=== PATIENT | male | born 1990 | race Caucasian/White ===

== ENCOUNTER 2022-03-18 07:32 | Day surgery (SDC) | payer OTHER ==
[2022-03-18 07:49] VITALS: TEMP 97.1
[2022-03-18] MEDS ORDERED: LACTATED RINGERS 1,000 ML IV ONE (07:50)
[2022-03-18] MEDS ORDERED: PROPOFOL 10 MG/ML 20 ML VIAL IV ONE (08:08)
--- NOTE | 2022-03-18 08:08 | P.GSHP ---
History of Present Illness H&P Date: 03/18/22 Chief Complaint: GI bleed Is a 32-year-old male with history of GI bleed. Patient presents today for colonoscopy. Past Medical History Additional Past Medical History / Comment(s): hemorrhoids and anal fissure. pre op colonoscopy before hemorrhoidectomy. small amt of rectal bleeding has increased lately presumed from hemorrhoids and fissure but precautionary. frequent urination tested for DM and prostate nothing showed. falls asleep easily will have sleep testing. 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 +covid 07/2021 History of Any Multi-Drug Resistant Organisms: None Reported Additional Past Surgical History / Comment(s): rt carpal tunnel release, wisdom teeth removed. Past Anesthesia/Blood Transfusion Reactions: No Reported Reaction Additional Past Anesthesia/Blood Transfusion Reaction / Comment(s): no blood transfusions. Smoking Status: Former smoker, Vaper - Past Family History Mother Family Medical History: Hypertension Father Additional Family Medical History / Comment(s): psoriasis , arthritis Medications and Allergies Home Medications Medication Instructions Recorded Confirmed Type No Known Home Medications 03/14/22 03/18/22 History Allergies Allergy/AdvReac Type Severity Reaction Status Date / Time No Known Allergies Allergy Verified 03/18/22 07:43 Surgical - Exam Vital Signs Temp Pulse Resp BP Pulse Ox 97.1 F L 78 15 127/84 97 03/18/22 07:47 03/18/22 07:47 03/18/22 07:47 03/18/22 07:47 03/18/22 07:47 - General well developed, well nourished, no distress - Eyes PERRL - ENT normal pinna - Neck no masses - Respiratory normal expansion - Cardiovascular Rhythm: regular - Abdomen Abdomen: soft, non tender Assessment and Plan Assessment: GI bleed. We'll perform colonoscopy.
[2022-03-18] MEDS ORDERED: LACTATED RINGERS 1,000 ML IV SCH (08:20)
[2022-03-18] MEDS ORDERED: LIDOCAINE 1% (10MG/ML) FOR IV START INTRADERMA PRN (08:20)
--- NOTE | 2022-03-18 08:22 | P.OP ---
Date of Procedure: 03/18/22 Preoperative Diagnosis: GI bleed Postoperative Diagnosis: Internal and external hemorrhoids Procedure(s) Performed: Colonoscopy Anesthesia: MAC Surgeon: Galileo Benedict Pathology: none sent Condition: stable Disposition: PACU Description of Procedure: The patient's placed on the endoscopy table in the lateral position. He received IV sedation. Digital rectal exam performed which revealed internal and external hemorrhoids. The flexible colonoscope was then placed patient anus and passed throughout the entire colon. The ileocecal valve was visualized. The cecum, ascending and transverse colon appeared normal. The descending and sigmoid colon appeared normal. The scope was then brought back the rectum and this appeared normal. Scope withdrawn for patient. There was no evidence of any active GI bleed. Presumed patient may have had bleeding from internal and external hemorrhoids.
[2022-03-18 08:40] VITALS: BP 114/78; PULSE 74; RESP 16
== END 2022-03-18 09:07 | disposition home or self-care (01) ==
LOC: ORWHC2ENDO 07:32
PROVIDERS: ATTEND Surgery
DX: K92.2 Gastrointestinal hemorrhage, unspecified (principal); K64.8 Other hemorrhoids; K64.4 Residual hemorrhoidal skin tags; Z87.19 Personal history of other diseases of the digestive system; Z86.16 Personal history of COVID-19; Z87.891 Personal history of nicotine dependence; Z82.49 Family history of ischemic heart disease and other diseases of the circulatory system; Z82.61 Family history of arthritis
CPT/HCPCS: 45378; J2704

== ENCOUNTER 2022-03-19 07:39 | Day surgery (SDC) | payer OTHER ==
[~2022-03-19 07:39] MED LIST: ACETAMINOPHEN TAB 500 MG TAB PO PRN; DEXAMETHASONE SOD PHOSPHATE 4 MG/ML 1 ML VIAL IV ONE; HEPARIN SODIUM,PORCINE/PF 5,000 UNIT/0.5 ML SYRINGE SQ PRN; HYDROmorphone 0.5 MG/0.5 ML SYRINGE IVP PRN; LACTATED RINGERS 1,000 ML IV SCH; ONDANSETRON 4 MG/2 ML VIAL IVP ONE; Pre Op ABX Message 1 EACH MISC MISCELLANE ONE
--- NOTE | 2022-03-19 08:42 | P.GSHP ---
History of Present Illness H&P Date: 03/19/22 Chief Complaint: Internal and external hemorrhoids Is a 32-year-old male who's had issues with internal and external hemorrhoids. Patient presents today for hemorrhoidectomy Past Medical History Additional Past Medical History / Comment(s): small amt of rectal bleeding has increased latetly. hx of blood in stools,hemorrhoids, colonoscopy before hemorrhoidectomy colonoscopy showed no fissure today. frequent urination tested for DM and prostate nothing showed. falls asleep easily will have sleep testing. 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 +covid 07/2021. [ End ] History of Any Multi-Drug Resistant Organisms: None Reported Additional Past Surgical History / Comment(s): colonoscopy. carpal tunnel released rt hand . wisdom teeth Past Anesthesia/Blood Transfusion Reactions: No Reported Reaction Additional Past Anesthesia/Blood Transfusion Reaction / Comment(s): no blood tranfusions Smoking Status: Former smoker, Vaper - Past Family History Father Family Medical History: Rheumatoid Arthritis (RA) Additional Family Medical History / Comment(s): psoriatic arthritis Mother Family Medical History: Hypertension Additional Family Medical History / Comment(s): neuropathy Medications and Allergies Home Medications Medication Instructions Recorded Confirmed Type No Known Home Medications 03/14/22 03/19/22 History Allergies Allergy/AdvReac Type Severity Reaction Status Date / Time No Known Allergies Allergy Verified 03/19/22 07:59 Surgical - Exam Vital Signs Temp Pulse Resp BP Pulse Ox 97.4 F L 74 16 130/71 98 03/19/22 08:00 03/19/22 08:00 03/19/22 08:00 03/19/22 08:00 03/19/22 08:00 - General well developed, well nourished, no distress - Eyes PERRL - ENT normal pinna - Neck no masses - Respiratory normal expansion - Cardiovascular Rhythm: regular - Abdomen Abdomen: soft, non tender - Rectum Internal and external Hemorrhoids. We'll perform hemorrhoidectomy
[2022-03-19] MEDS ORDERED: PROPOFOL 10 MG/ML 20 ML VIAL IV ONE (08:50)
[2022-03-19] MEDS ORDERED: MIDAZOLAM 2 MG/2 ML VIAL ONE (08:50)
[2022-03-19] MEDS ORDERED: ONDANSETRON 4 MG/2 ML VIAL ONE (08:50)
[2022-03-19] MEDS ORDERED: SODIUM CHLORIDE 0.9% 50 ML with ceFAZolin 2,000 MG IV ONE ×2 (08:53)
[2022-03-19] MEDS ORDERED: LIDOCAINE 1%-EPI 1:100,000 20 ML VIAL SQ ONE (09:17)
[2022-03-19 09:31] VITALS: TEMP 97.2
--- NOTE | 2022-03-19 10:02 | P.OP ---
Date of Procedure: 03/19/22 Preoperative Diagnosis: Internal and external hemorrhoids Postoperative Diagnosis: Internal and external hemorrhoids Procedure(s) Performed: Internal and external hemorrhoidectomy Anesthesia: FREEDOM Surgeon: Galileo Benedict Pathology: other (Internal and external hemorrhoids) Condition: stable Disposition: PACU Description of Procedure: The patient's placed on the operating table in the prone position after receiving spinal anesthetic and IV sedation. He was then jackknifed and then his anus was prepped and draped usual fashion. The anus was anesthetized 1% local Xylocaine. The anal retractors placed anus. And then the left lateral hemorrhoidal column was grasped. Allis clamps you have using the Harmonic scissors the hemorrhoid was performed. Next the right anterior and right posterior hemorrhoidal column was grasped and dissected in identical fashion. The anus was inspected for heme stasis. There is no bleeding seen. Gelfoam was placed and anus. Patient top she will was sent to recovery room stable condition.
[2022-03-19 10:55] VITALS: BP 130/78; PULSE 72; RESP 20
[2022-03-19] MEDS ORDERED: LACTATED RINGERS 1,000 ML IV ONE (11:17)
== END 2022-03-19 11:35 | disposition home or self-care (01) ==
LOC: OR 07:39
PROVIDERS: ATTEND Surgery
DX: K64.4 Residual hemorrhoidal skin tags (principal); K64.8 Other hemorrhoids; Z87.19 Personal history of other diseases of the digestive system; Z87.891 Personal history of nicotine dependence; Z82.61 Family history of arthritis; Z82.49 Family history of ischemic heart disease and other diseases of the circulatory system
CPT/HCPCS: 88304; 46260; J2250; J1100; J2405; J0690; J2704; J1644

== ENCOUNTER 2024-11-24 17:08 | Emergency (ER) | payer BC, OTHER ==
[2024-11-24 17:36] VITALS: RESP 16; TEMP 98
[2024-11-24 17:56] LABS: Basophils # (A) 0.04 10*3/uL (0.00-0.10); Basophils % (A) 0.4 %; Eosinophils # (A) 0.16 10*3/uL (0.04-0.35); Eosinophils % (A) 1.4 %; HCT 45.3 % (39.6-50.0); HGB 15.5 g/dL (13.0-17.0); Lymphocytes # (A) 2.94 10*3/uL (0.90-5.00); Lymphocytes % (A) 26.4 %; MCH 30.7 pg (27.0-32.0); MCHC 34.2 g/dL (32.0-37.0); MCV 89.7 fL (80.0-97.0); Monocytes # (A) 0.99 10*3/uL (0.20-1.00); Monocytes % (A) 8.9 %; Neutrophils # (A) 6.97 10*3/uL (1.80-7.70); Neutrophils % (A) 62.5 %; Platelet Count 327 10*3/uL (140-440); RBC 5.05 10*6/uL (4.40-5.60); RDW 13.0 % (11.5-14.5); WBC 11.14 10*3/uL (4.50-10.00)
[2024-11-24 18:07] LABS: INR 0.9 (<1.2); Partial Thromboplastin Time 24.3 sec (22.0-30.0); Prothrombin Time 10.4 sec (10.0-12.5)
[2024-11-24 18:12] LABS: ALT 51 U/L (4-49); AST 36 U/L (17-59); African American GFR (CKD) >90 (>60 ml/min/1.73 sqM); Albumin 5.0 g/dL (3.5-5.0); Alkaline Phosphatase 91 U/L (38-126); Anion Gap 14 mmol/L; Blood Urea Nitrogen 16 mg/dL (9-20); Calcium 10.2 mg/dL (8.4-10.2); Carbon Dioxide 23 mmol/L (22-30); Chloride 103 mmol/L (98-107); Glucose 89 mg/dL (74-99); Magnesium 2.0 mg/dL (1.6-2.3); Non-African American GFR(CKD) >90 (>60 ml/min/1.73 sqM); Potassium 4.5 mmol/L (3.5-5.1); Sodium 140 mmol/L (137-145); Total Protein 9.0 g/dL (6.3-8.2)
--- NOTE | 2024-11-24 18:23 | XR ---
EXAMINATION TYPE: XR chest 2V DATE OF EXAM: 11/24/2024 6:04 PM COMPARISON: None CLINICAL INDICATION: Male, 34 years old with history of Chest Pain; TECHNIQUE: XR chest 2V Frontal and lateral views of the chest. FINDINGS: Lungs/Pleura: There is no evidence of pleural effusion, focal consolidation, or pneumothorax. Pulmonary vascularity: Unremarkable. Heart/mediastinum: Cardiomediastinal silhouette is unremarkable. Musculoskeletal: No acute osseous pathology. IMPRESSION: No acute cardiopulmonary disease/process. [facility], , 11/24/2024 6:20 PM
--- NOTE | 2024-11-24 18:48 | ED ---
General Adult HPI - General Chief complaint: Chest Pain Stated complaint: chest tightness, anxiety Time Seen by Provider: 11/24/24 17:20 Source: patient, RN notes reviewed Mode of arrival: ambulatory Limitations: no limitations - History of Present Illness Initial comments: 34-year-old male with no reported medical conditions presenting to the emergency room with complaints of epigastric/lower chest discomfort that has been intermittent over the past day and a half. Patient states that on his way home from work yesterday he began to experience a tightness in his chest that radiated to his left arm with associated diaphoresis. He states that this lasted for approximately 5 minutes. Patient states that throughout the day today while he was at his job he felt a "weird "sensation in his chest. He denies associated difficulty breathing, heart palpitations. Patient believes that this may be secondary to anxiety that he had his boss, and to work today. Currently states that he is feeling well and is chest pain-free. Denies history of diabetes, hypertension, hyperlipidemia. Family history of hypertension and hyperlipidemia. - Related Data Previous Rx's Medication Instructions Recorded Acetaminophen Tab [Tylenol] 650 mg PO Q6H #30 tab 03/19/22 Docusate [Colace] 100 mg PO BID #20 capsule 03/19/22 Ibuprofen [Motrin] 600 mg PO Q6HR PRN #40 tab 03/19/22 oxyCODONE HCL [OxyIR] 5 mg PO Q6H PRN 3 Days #10 tab 03/19/22 Allergies Allergy/AdvReac Type Severity Reaction Status Date / Time No Known Allergies Allergy Verified 03/19/22 17:11 Review of Systems ROS Statement: Those systems with pertinent positive or pertinent negative responses have been documented in the HPI. ROS Other: All systems not noted in ROS Statement are negative. Past Medical History Past Medical History: No Reported History History of Any Multi-Drug Resistant Organisms: None Reported Past Surgical History: Tonsillectomy Additional Past Surgical History / Comment(s): carpal tunnel release. hemorrhoidectomy Past Psychological History: Unable to Obtain Smoking Status: Never smoker Past Alcohol Use History: None Reported Past Drug Use History: Marijuana General Exam Limitations: no limitations Neck exam: Present: normal inspection. Absent: tenderness, meningismus, lymphadenopathy Respiratory exam: Present: normal lung sounds bilaterally. Absent: respiratory distress, wheezes, rales, rhonchi, stridor Cardiovascular Exam: Present: regular rate, normal rhythm, normal heart sounds. Absent: systolic murmur, diastolic murmur, rubs, gallop, clicks GI/Abdominal exam: Present: soft, normal bowel sounds. Absent: distended, tenderness, guarding, rebound, rigid Extremities exam: Present: normal inspection, full ROM, normal capillary refill. Absent: tenderness, pedal edema, joint swelling, calf tenderness Back exam: Present: normal inspection Course Vital Signs 11/24/24 11/24/24 11/24/24 17:33 18:52 19:31 Temperature 98 F Pulse Rate 80 74 76 Respiratory 16 16 16 Rate Blood Pressure 134/82 120/75 120/77 O2 Sat by Pulse 98 97 98 Oximetry Medical Decision Making - Medical Decision Making Was pt. sent in by a medical professional or institution (, PA, TIME BUYER, urgent care, hospital, or detention...) When possible be specific @ -No Did you speak to anyone other than the patient for history (EMS, parent, family, police, friend...)? What history was obtained from this source @ -No Did you review nursing and triage notes (agree or disagree)? Why? @ -I reviewed and agree with nursing and triage notes Were old charts reviewed (outside hosp., previous admission, EMS record, old EKG, old radiological studies, urgent care reports/EKG's, detention records)? Report findings @ -No old charts were reviewed Differential Diagnosis (chest pain, altered mental status, abdominal pain women, abdominal pain men, vaginal bleeding, weakness, fever, dyspnea, syncope, headache, dizziness, GI bleed, back pain, seizure, CVA, palpatations, mental health, musculoskeletal)? @ -Differential Chest Pain: Stable Angina, Unstable Angina, STEMI, NSTEMI Aortic Dissection, Pneumothorax, Musculoskeletal, Esophageal Spasm GERD, Cholecystitis, Pancreatitis, Zoster, this is not meant to be an all-inclusive list. EKG interpreted by me (3pts min.). @ -Completed at 1743 sinus rhythm with sinus arrhythmia, ventricular of 83, IL interval 146, QRS 90, QT 351, QTc 391 X-rays interpreted by me (1pt min.). @ -Chest x-ray complete no acute cardiopulmonary process or disease CT interpreted by me (1pt min.). @ -None done U/S interpreted by me (1pt. min.). @ -None done What testing was considered but not performed or refused? (CT, X-rays, U/S, labs)? Why? @ -None What meds were considered but not given or refused? Why? @ -None Did you discuss the management of the patient with other professionals (professionals i.e. , PA, TIME BUYER, lab, RT, psych nurse, marriage and family social worker, rubber extrusion machine operator, teacher, state wildlife officer, case briefer)? Give summary @ -No Was smoking cessation discussed for >3mins.? @ -No Was critical care preformed (if so, how long)? @ -No Were there social determinants of health that impacted care today? How? (Homelessness, low income, unemployed, alcoholism, drug addiction, transportation, low edu. Level, literacy, decrease access to med. care, skilled nursing, rehab)? @ -No Was there de-escalation of care discussed even if they declined (Discuss DNR or withdrawal of care, Hospice)? DNR status @ -No What co-morbidities impacted this encounter? (DM, HTN, Smoking, COPD, CAD, Cancer, CVA, ARF, Chemo, Hep., AIDS, mental health diagnosis, sleep apnea, morbid obesity)? @ -None Was patient admitted / discharged? Hospital course, mention meds given and route, prescriptions, significant lab abnormalities, going to OR and other pertinent info. @ -Discharge. 34-year-old male presented emergency room with complaints of chest pain. On questioning patient's pain is more epigastric in region and does have tenderness to the epigastric region. Patient was offered medication for pain however declined stating that he feels well and is not having any discomfor t in his chest at this time. EKG is in sinus rhythm. Laboratory testing including CBC, CMP, coagulation, D-dimer, and troponin within normal. Chest x- ray no acute process. Patient is stable for discharge. Recommend close follow- up with primary care provider for further evaluation. return parameters discussed. Case discussed with my attending Dr. Almendarez. Undiagnosed new problem with uncertain prognosis? @ -No Drug Therapy requiring intensive monitoring for toxicity (Heparin, Nitro, Insulin, Cardizem)? @ -No Were any procedures done? @ -No Diagnosis/symptom? @ -Epigastric abdominal pain, chest pain Acute, or Chronic, or Acute on Chronic? @ -Acute Uncomplicated (without systemic symptoms) or Complicated (systemic symptoms)? @ -Uncomplicated Side effects of treatment? @ -No Exacerbation, Progression, or Severe Exacerbation? @ -No Poses a threat to life or bodily function? How? (Chest pain, [place], [place], pneumonia, PE, COPD, DKA, ARF, appy, cholecystitis, CVA, Diverticulitis, Homicidal, Nicholson icidal, threat to staff... and all critical care pts) @ -No - Lab Data Result diagrams: 11/24/24 17:43 11/24/24 17:43 Lab Results 11/24/24 11/24/24 11/24/24 Range/Units 17:43 17:43 17:43 WBC 11.14 H (4.50-10.00) 10*3/uL RBC 5.05 (4.40-5.60) 10*6/uL Hgb 15.5 (13.0-17.0) g/dL Hct 45.3 (39.6-50.0) % MCV 89.7 (80.0-97.0) fL MCH 30.7 (27.0-32.0) pg MCHC 34.2 (32.0-37.0) g/dL Plt Count 327 (140-440) 10*3/uL MPV 10.1 (9.5-12.2) fL Immature Gran % (Auto) 0.4 % Neutrophils % 62.5 % Lymphocytes % 26.4 % Monocytes % 8.9 % Eosinophils % 1.4 % Basophils % 0.4 % Immature Gran # 0.04 (0.00-0.04) 10*3/uL Neutrophils # 6.97 (1.80-7.70) 10*3/uL Lymphocytes # 2.94 (0.90-5.00) 10*3/uL Monocytes # 0.99 (0.20-1.00) 10*3/uL Eosinophils # 0.16 (0.04-0.35) 10*3/uL Basophils # 0.04 (0.00-0.10) 10*3/uL PT 10.4 (10.0-12.5) sec INR 0.9 (<1.2) APTT 24.3 (22.0-30.0) sec D-Dimer (<0.60) mg/L FEU Sodium 140 (137-145) mmol/L Potassium 4.5 (3.5-5.1) mmol/L Chloride 103 (98-107) mmol/L Carbon Dioxide 23 (22-30) mmol/L Anion Gap 14 mmol/L BUN 16 (9-20) mg/dL Creatinine 0.96 (0.66-1.25) mg/dL Est GFR (CKD-EPI)AfAm >90 (>60 ml/min/1.73 sqM) Est GFR (CKD-EPI)NonAf >90 (>60 ml/min/1.73 sqM) Glucose 89 (74-99) mg/dL Calcium 10.2 (8.4-10.2) mg/dL Magnesium 2.0 (1.6-2.3) mg/dL Total Bilirubin 0.8 (0.2-1.3) mg/dL AST 36 (17-59) U/L ALT 51 H (4-49) U/L Alkaline Phosphatase 91 (38-126) U/L Troponin I (0.000-0.034) ng/mL Total Protein 9.0 H (6.3-8.2) g/dL Albumin 5.0 (3.5-5.0) g/dL Lipase (23-300) U/L 11/24/24 11/24/24 11/24/24 Range/Units 17:43 17:43 17:43 WBC (4.50-10.00) 10*3/uL RBC (4.40-5.60) 10*6/uL Hgb (13.0-17.0) g/dL Hct (39.6-50.0) % MCV (80.0-97.0) fL MCH (27.0-32.0) pg MCHC (32.0-37.0) g/dL Plt Count (140-440) 10*3/uL MPV (9.5-12.2) fL Immature Gran % (Auto) % Neutrophils % % Lymphocytes % % Monocytes % % Eosinophils % % Basophils % % Immature Gran # (0.00-0.04) 10*3/uL Neutrophils # (1.80-7.70) 10*3/uL Lymphocytes # (0.90-5.00) 10*3/uL Monocytes # (0.20-1.00) 10*3/uL Eosinophils # (0.04-0.35) 10*3/uL Basophils # (0.00-0.10) 10*3/uL PT (10.0-12.5) sec INR (<1.2) APTT (22.0-30.0) sec D-Dimer 0.27 (<0.60) mg/L FEU Sodium (137-145) mmol/L Potassium (3.5-5.1) mmol/L Chloride (98-107) mmol/L Carbon Dioxide (22-30) mmol/L Anion Gap mmol/L BUN (9-20) mg/dL Creatinine (0.66-1.25) mg/dL Est GFR (CKD-EPI)AfAm (>60 ml/min/1.73 sqM) Est GFR (CKD-EPI)NonAf (>60 ml/min/1.73 sqM) Glucose (74-99) mg/dL Calcium (8.4-10.2) mg/dL Magnesium (1.6-2.3) mg/dL Total Bilirubin (0.2-1.3) mg/dL AST (17-59) U/L ALT (4-49) U/L Alkaline Phosphatase (38-126) U/L Troponin I <0.012 (0.000-0.034) ng/mL Total Protein (6.3-8.2) g/dL Albumin (3.5-5.0) g/dL Lipase 76 (23-300) U/L Disposition Clinical Impression: Epigastric abdominal pain, Chest pain Disposition: HOME SELF-CARE Condition: Good Instructions (If sedation given, give patient instructions): Chest Pain (ED) Additional Instructions: Please return to the Emergency Department if symptoms worsen or any other concerns. Is patient prescribed a controlled substance at d/c from ED?: No Referrals: Ron Cantrell DO [Primary Care Provider] - 1-2 days Time of Disposition: 19:28
[2024-11-24 19:32] VITALS: BP 120/77; PULSE 76
== END 2024-11-24 19:36 | disposition home or self-care (01) ==
LOC: EC 17:08
DX: R10.13 Epigastric pain (principal); R07.89 Other chest pain
CPT/HCPCS: 36415; 71046; 80053; 83690; 83735; 84484; 85025; 85379; 85610; 85730; 93005; 99285